=== PATIENT | female | born 1960 | race Caucasian/White ===

== ENCOUNTER 2024-01-19 10:13 | Emergency (ER) | payer OTHER, SELFPAY ==
--- NOTE | ~2024-01-19 | CT_ITS ---
EXAMINATION: CT ABDOMEN AND PELVIS WITH CONTRAST CLINICAL INFORMATION: Epigastric and left upper quadrant pain COMPARISON: None available. TECHNIQUE: Multidetector volumetric images were obtained from the superior aspect of the liver through the pubic symphysis following administration 85 mL of Omnipaque 350 intravenous contrast. Sagittal and coronal reformatted images were obtained on the technologist's workstation. Oral contrast: Yes This CT examination was performed using dose optimization techniques as appropriate, variously including the following: *Automated exposure control *Adjustment of mA and/or kV according to patient size (this includes techniques or standardized protocols for targeted exams where dose is matched to indication/reason for exam; i.e. extremities or head) *Use of iterative reconstruction technique DLP: 639 mGy-cm FINDINGS: LUNG BASES: There is subsegmental atelectasis or small infiltrate in the anterior basal left lower lobe abutting the diaphragm. There is a very small left pleural effusion. There is a small amount of ascites seen just under the left hemidiaphragm and fat stranding inferior to this region. There are small left cardiophrenic angle or anterior diaphragmatic lymph nodes. Right lung base is clear. LIVER, GALLBLADDER, AND BILIARY TREE: The liver is normal in size, shape, and attenuation. No focal hepatic lesion or biliary ductal dilatation is present. The gallbladder is unremarkable with no evidence of radiopaque gallstones, gallbladder wall thickening, or obvious pericholecystic inflammatory changes. PANCREAS: Unremarkable. SPLEEN: Unremarkable. ADRENAL GLANDS: Unremarkable. KIDNEYS AND URETERS: The kidneys are normal in size, shape, and attenuation. No hydronephrosis, hydroureter, or calculi seen. No perinephric stranding. BLADDER: Unremarkable. GASTROINTESTINAL TRACT: The small and large bowel are unremarkable. The appendix is not seen. The stomach is normal. ABDOMINAL WALL: No significant hernia is appreciated. LYMPH NODES: Normal. VASCULAR: Unremarkable. PELVIC VISCERA: Unremarkable. OSSEOUS STRUCTURES: Degenerative changes of the lower lumbar spine. CT/CT abdomen pelvis w IV con IMPRESSION: Atelectasis or small infiltrate in the anterior basal left lower lobe and very small left pleural effusion. There is also small amount of ascites and fat stranding inferior to this region under the left hemidiaphragm. Infectious or inflammatory pulmonary process and reactive changes in the upper abdominal cavity should be considered. Differential would include fat necrosis or epiploic appendagitis and possible changes from old pancreatitis. No abnormality is seen in the adjacent colon, stomach, pancreas or spleen. Neoplastic process cannot be excluded, in particular mesothelioma and metastatic disease and short-term follow-up exam recommended. Fleischner guidelines were followed.
--- NOTE | 2024-01-19 10:33 | ECG_ITS ---
Test Reason : ABD PAIN Blood Pressure : / mmHG Vent. Rate : 062 BPM Atrial Rate : 062 BPM P-R Int : 192 ms QRS Dur : 088 ms QT Int : 414 ms P-R-T Axes : 035 -19 009 degrees QTc Int : 420 ms Normal sinus rhythm Possible Anterior infarct , age undetermined Abnormal ECG No previous ECGs available Referred By: Angie Garza Electronically Signed By:TAJ QUIROS MD
[2024-01-19 10:34] VITALS: BMI 31.2
--- NOTE | 2024-01-19 10:59 | ED.ABDPAIN ---
HPI - Abdominal Pain General Chief Complaint: Abdominal Pain Stated Complaint: Pain under rib cage L side Time Seen by Provider: 01/19/24 10:25 Source: patient Mode of arrival: ambulatory Limitations: no limitations History of Present Illness ED Provider: FUNMILAYO MORALES narrative: 63 yo female with PMH of CAD s/p stent last January on brilinta, HTN, HLD, prior c - section and s/p oophorectomy and salpingectomy who comes in with c/o LUQ pain and no BM since Monday as well as early satiety. Pain started to radiate since Monday. She has decreased appetite but no fevers, vomiting. She notes tenderness to palpation. No fevers, urinary symptoms, rash. MD elicited complaint: abdominal pain Pertinent past history: none Onset (ago): day(s) (Monday ) Pain Consistency: constant Location: epigastric and LUQ Severity: moderate Quality: stabbing and aching Radiation: other (L shoulder) Migration to: no migration Exacerbating factors: movement Relieving factors: nothing Associated symptoms: nausea and constipation Related Data Previous Rx's ?Medication ?Instructions ?Recorded amoxicillin 875 mg-potassium 1 tab PO BID #13 tabs 01/19/24 clavulanate 125 mg tablet morphine 15 mg immediate release 15 mg PO Q6H PRN pain #12 tabs 01/19/24 tablet prednisone 20 mg tablet 40 mg (2 x 20 mg) PO DAILY 5 days 01/19/24 #10 tabs Allergies Allergy/AdvReac Type Severity Reaction Status Date / Time sulfamethoxazole Allergy Unknown Unknown Verified 01/19/24 10:38 [From Bactrim] trimethoprim [From Bactrim] Allergy Unknown Unknown Verified 01/19/24 10:38 Review of Systems Review of Systems Constitutional : No Weight loss, No Fever, No Chills ENT/Mouth : No sore throat, No Rhinorrhea Eyes: No Swelling, No Redness Cardiovascular : No Chest Pain, No SOB, NoEdema Respiratory : No Cough, No Sputum, No Wheezing Gastrointestinal : Positive Nausea, no Vomiting, no Diarrhea, positive abdominal Pain, No Hematochezia, No Melena, pos constipation Genitourinary : No Dysuria, No Urinary Frequency, No Hematuria, No Urgency Musculoskeletal : No joint pain, No Myalgias, No Joint Swelling Skin : No Skin Lesions, No rash Neuro : No Weakness, No Numbness, No Dizziness, No Headache Psych : No Anxiety/Panic, No Depression Heme/Lymph: No Bruising, No Lymphadenopathy Endocrine : No Polyuria, No Polydipsia All other systems reviewed and are negative. [facility] Past Medical History Medical History (Updated 01/19/24 @ 13:54 by Angie Garza DO) Hyperlipidemia HTN (hypertension) CAD (coronary artery disease) Surgical History (Updated 01/19/24 @ 11:14 by Angie aGrza DO) H/O unilateral oophorectomy Previous section Social History Social History (Updated 01/19/24 @ 11:14 by Angie Garza DO) Patient Tobacco Use Status: Never used Tobacco Advance Directives: No Advance Directives Information Provided: Yes Do you have a plan to hurt others: No Plan Physical Exam ED Vital Signs: Vital Signs - 24 hr 01/19/24 12:43 Temperature 98.4 F Pulse Rate 71 Respiratory Rate 18 Blood Pressure 145/76 H Pulse Oximetry 96 Oxygen Delivery Method Room Air BMI result Body Mass Index 31.2 Appearance: Alert. Oriented X3. No acute distress. Eyes: Pupils equal, round and reactive to light. ENT: Pharynx normal. Neck: Normal inspection. Neck supple. CVS: Normal heart rate and rhythm. Pulses normal. Respiratory: No respiratory distress. Breath sounds normal. Abdomen: Soft and moderate LUQ ttp no rebound Skin: Skin warm and dry. Normal skin color. Normal skin turgor. Extremities: No lower extremity edema. No calf ttp Neuro: Oriented X 3. No motor deficit. No sensory deficit. Course Course Course Narrative: no CP/SOB no signs of DVT, no hypoxia or tachycardia to suggest VTE Medical Decision Making Medical Decision Making [facility] Narrative: 63 yo female with PMH of CAD s/p stent last January on brilinta, HTN, HLD, prior c - section and s/p oophorectomy and salpingectomy who comes in with c/o LUQ pain and constipation with early satiety at this time will need labs, EKG, CT scan for constipation, mass, pancreatitis, IV morphine for pain ordered. Differential Diagnosis Differential Diagnoses: The differential diagnosis associated with the presentation includes mass, gastritis, pancreatitis Admission/Observation Consideration of admission/observation: Escalation of care including admission/observation considered labs and VS reassuring possible infectious or inflammatory process will treat with steroids and abx then refer to PCP Lab Data [facility] Lab Attestation statement: I reviewed the patient's lab results. 01/19/24 11:03 01/19/24 11:03 Labs: Lab Results 01/19/24 01/19/24 01/19/24 Range/Units 11:02 11:03 12:41 WBC 6.9 (4.8-10.8) X10*3/uL RBC 4.19 L (4.20-5.50) X10*6/uL Hgb 12.4 (12.0-16.0) g/dl Hct 36.9 L (37.0-47.0) % MCV 88.1 (80.0-98.0) fL MCH 29.6 (27.0-33.0) pg MCHC 33.6 (31.0-35.0) g/dl RDW 12.8 (11.0-16.0) % Plt Count 208 (160-400) X10*3/uL MPV 9.9 (9.4-12.3) fL Immature Gran % (Auto) 0.1 (0.0-0.4) % Neut % (Auto) 59.3 (45-73) % Lymph % (Auto) 28.3 (20-40) % Noble % (Auto) 7.9 (2-11) % Eos % (Auto) 3.4 (0-4) % Baso % (Auto) 1.0 (0-2) % Lymph # (Auto) 1.9 (1.2-4.9) X10*3/uL Noble # (Auto) 0.5 (0.1-1.2) X10*3/uL Eos # (Auto) 0.2 (0.0-0.4) X10*3/uL Baso # (Auto) 0.1 (0.0-0.2) X10*3/uL Abs Immat Gran (auto) 0.01 (0.00-0.03) X10*3/uL Absolute Neuts (auto) 4.1 (2.0-8.3) x10*3/uL Absolute Nucleated RBC 0.000 (0.0-0.012) X10*3/uL Nucleated RBC % (auto) 0.0 (0.0-0.2) /100WBC Hold Blue Top SEE NOTE Sodium 140 (135-145) mmol/L Potassium 3.8 (3.3-5.1) mmol/L Chloride 107 (96-108) mmol/L Carbon Dioxide 25 (22-29) mmol/L Anion Gap 12 (12-20) BUN 9 (9-16) mg/dL Creatinine 0.72 (0.5-1.4) mg/dL Estim Creat Clear Calc 82.1 Estimated GFR > 60 Random Glucose 98 (60-115) mg/dL Calcium 9.7 (8.4-10.2) mg/dL Magnesium 1.9 (1.6-2.6) mg/dL Total Bilirubin 0.7 (0.0-1.0) mg/dL Direct Bilirubin 0.2 (0.0-0.5) mg/dL AST 19 (5-31) U/L ALT 17 (0-31) U/L Alkaline Phosphatase 90 (39-117) U/L Troponin I High Sens < 2.7 (<3.5-17.0) ng/L B-Natriuretic Peptide 31 (<100) pg/mL Total Protein 7.0 (6.5-8.0) g/dL Albumin 4.4 (3.5-5.0) g/dL Lipase 13 (8-78) U/L Urine Color Yellow Urine Appearance Clear Urine pH 6.5 (5.0-9.0) Ur Specific Dalton 1.025 (1.005-1.025) Urine Protein Negative (Neg-Trace) mg/dL Urine Glucose (UA) Negative (Negative) mg/dL Urine Ketones Negative (Negative) mg/dL Urine Blood Negative (Negative) Urine Nitrite Negative (Negative) Ur Leukocyte Esterase Negative (Negative) Independent Interpretation I performed an independent interpretation of an: EKG and CT Scan (possible L sided lung infection) Interpretation: Rate: 62 Rhythm: NSR [place]: left Normal P waves. Normal ROBERTA. Normal QRS complex. ST T wave : no RYLEE, inverted t waves V1, V2, qTC: 420 prior studies: no acute ischemia The study has been interpreted contemporaneously by me. . Radiology Impression Discussion of test interpretation with radiology: I have reviewed the radiologist's reading. Independent Historian Clinical information obtained from an independent historian. History obtained from or confirmed by: Spouse Medications Administered Discontinued Medications Generic Name Dose Route Start Last Admin Trade Name Freq PRN Reason Stop Dose Admin Sodium Chloride 500 mls @ 500 mls/hr 01/19/24 10:32 01/19/24 12:04 Ns IV 01/19/24 11:31 Infused .Q1H ONE Infusion Iohexol 100 ml 01/19/24 12:26 01/19/24 12:31 Iohexol 350 Mg/Ml 100 Ml Infus..Btl IV 01/19/24 12:27 85 ml ONCE ONE Administration Morphine Sulfate 4 mg 01/19/24 10:32 01/19/24 11:14 Morphine Sulfate 4 Mg/Ml Cartridge IVPUSH 01/19/24 10:33 4 mg ONCE ONE Administration Protocol Ondansetron HCl 4 mg 01/19/24 10:32 01/19/24 11:14 Ondansetron Hcl 4 Mg/2 Ml Vial IVPUSH 01/19/24 10:33 4 mg ONCE ONE Administration Discharge Plan Discharge Clinical Impression: Pleural effusion on left, Abdominal pain, Left lower lobe pulmonary infiltrate Patient Disposition: Home, Self-Care Instructions: Pleurisy (ED), Abdominal Pain (ED), Pneumonia (ED) Additional Instructions: it is important you follow up with your doctor after you complete treatment for repeat xray and follow up imaging. return for worsening pain, trouble breathing, swelling or any other concerns. finish all antibiotics and therapy. Prescriptions: New prednisone 20 mg tablet 40 mg PO DAILY 5 Days Qty: 10 0RF morphine 15 mg tablet 15 mg PO Q6H PRN (Reason: pain) Qty: 12 0RF Rx Instructions: partial fill okay; Partial Fill upon patient request. amoxicillin-pot clavulanate 875-125 mg tablet 1 tab PO BID Qty: 13 0RF Print Language: Arabic
[2024-01-19] MEDS: 0.9 % Sodium Chloride 500 ML IV (11:02)
[2024-01-19 11:06] LABS: MANUAL DIFF FLAG NO
[2024-01-19 11:08] LABS: Basophils Absolute Auto 0.1 X10*3/uL (0.0-0.2); Eosinophils Absolute Auto 0.2 X10*3/uL (0.0-0.4); Eosinophils Percent Auto 3.4 % (0-4); Hematocrit 36.9 % (37.0-47.0); Hemoglobin 12.4 g/dl (12.0-16.0); Imm Gran Abs Auto 0.01 X10*3/uL (0.00-0.03); Imm Gran Pct Auto 0.1 % (0.0-0.4); Lymphocytes Absolute Auto 1.9 X10*3/uL (1.2-4.9); Lymphocytes Percent Auto 28.3 % (20-40); Mean Corpuscular HGB Conc 33.6 g/dl (31.0-35.0); Mean Corpuscular Hemoglobin 29.6 pg (27.0-33.0); Mean Corpuscular Volume 88.1 fL (80.0-98.0); Mean Platelet Volume 9.9 fL (9.4-12.3); Monocytes Absolute Auto 0.5 X10*3/uL (0.1-1.2); Monocytes Percent Auto 7.9 % (2-11); Neutrophils Absolute Auto 4.1 x10*3/uL (2.0-8.3); Neutrophils Percent Auto 59.3 % (45-73); Platelet Count 208 X10*3/uL (160-400); Red Blood Count 4.19 X10*6/uL (4.20-5.50); Red Cell Distribution Width 12.8 % (11.0-16.0); White Blood Count 6.9 X10*3/uL (4.8-10.8)
[2024-01-19] MEDS: ondansetron HCL 4 MG/2 ML VIAL IVPUSH (11:14)
[2024-01-19] MEDS: Morphine Sulfate 4 MG/ML CARTRIDGE IVPUSH (11:14)
--- NOTE | 2024-01-19 11:25 | MHC.EDTECH ---
This tech informed patient that a urine sample would need to be obtained. Patient stated currently unable to void. Call chang within reach and patient aware to ring chang when they feel the need.
[2024-01-19 11:31] LABS: B Type Natriuretic Peptide 31 pg/mL (<100)
[2024-01-19 11:33] LABS: Troponin-I High Sensitivity < 2.7 ng/L (<3.5-17.0)
[2024-01-19 11:41] LABS: Alanine Aminotransferase 17 U/L (0-31); Albumin Level 4.4 g/dL (3.5-5.0); Alkaline Phosphatase 90 U/L (39-117); Anion Gap 12 (12-20); Aspartate Amino Transferase 19 U/L (5-31); Bilirubin Direct 0.2 mg/dL (0.0-0.5); Bilirubin Total 0.7 mg/dL (0.0-1.0); Blood Urea Nitrogen 9 mg/dL (9-16); Calcium 9.7 mg/dL (8.4-10.2); Carbon Dioxide 25 mmol/L (22-29); Chloride 107 mmol/L (96-108); Creatinine Clr Calc Pharmacy 82.1; Estimated Glomerular Filt Rate > 60; Glucose Random 98 mg/dL (60-115); Lipase 13 U/L (8-78); Magnesium 1.9 mg/dL (1.6-2.6); Potassium 3.8 mmol/L (3.3-5.1); Sodium 140 mmol/L (135-145)
[2024-01-19] MEDS: iohexoL 350 MG/ML 100 ML INFUS..BTL IV (12:31)
[2024-01-19 12:43] VITALS: BP 145/76; PULSE 71; RESP 18; TEMP 36.9; O2SAT 96
[2024-01-19 12:47] LABS: Appearance Urine Clear; Color Urine Yellow; Glucose Urine UA Negative (Negative); Leukocyte Esterase Urine Negative (Negative); Nitrite Urine Negative (Negative); PH 6.5 (5.0-9.0); Specific Gravity - Urine 1.025 (1.005-1.025); Urine Blood Negative (Negative); Urine Ketones Negative (Negative); Urine Protein Negative (Neg-Trace)
[2024-01-19 14:10] VITALS: BP 158/79; PULSE 68; RESP 18; TEMP 36.8; O2SAT 97
[2024-01-19] MEDS: Amoxicillin/Potassium Clav 875 MG TABLET PO (14:17)
[2024-01-19] MEDS: Morphine Sulfate Immed Release 15 MG TABLET PO (14:17)
[2024-01-19 14:49] VITALS: BP 158/79; PULSE 68; RESP 18; TEMP 36.8; O2SAT 97
== END 2024-01-19 14:49 | disposition home or self-care (01) ==
PROVIDERS: Emergency Provider Emergency Medicine; PCP Physician Assistant
DX: J90 Pleural effusion, not elsewhere classified (principal); R07.81 Pleurodynia; K59.00 Constipation, unspecified; R94.31 Abnormal electrocardiogram [ECG] [EKG]; R10.12 Left upper quadrant pain; R10.13 Epigastric pain; R91.8 Other nonspecific abnormal finding of lung field; M25.512 Pain in left shoulder; R06.02 Shortness of breath; R11.0 Nausea; I10 Essential (primary) hypertension; I25.10 Atherosclerotic heart disease of native coronary artery without angina pectoris; Z79.899 Other long term (current) drug therapy
CPT/HCPCS: 36415; 74177; 80048; 80076; 81003; 83690; 83735; 83880; 84484; 85025; 93005; 96361; 96374; 96375; 99284; J2270; J2405; Q9967

== ENCOUNTER → 2024-01-19 10:33 | Outpatient (BNV) | payer OTHER, SELFPAY | PROVIDERS: Emergency Provider Emergency Medicine; PCP Physician Assistant; Visit Provider Internal Medicine Cardiovascular Disease | DX: R94.31 Abnormal electrocardiogram [ECG] [EKG] (principal) | CPT/HCPCS: 93010 ==